=== PATIENT | male | born 1990 | race Caucasian/White ===

== ENCOUNTER 2018-02-05 07:23 | Outpatient (CLI) | payer OTHER ==
[2018-02-05] MEDS ORDERED: ISOVUE-370 76%-LOCM 1 ML ONE (09:55)
== END 2018-02-05 07:24 | disposition home or self-care (01) ==
LOC: BICCT 07:23
PROVIDERS: ATTEND Internal Medicine Gastroenterology
DX: K58.1 Irritable bowel syndrome with constipation (principal); R10.11 Right upper quadrant pain; K63.89 Other specified diseases of intestine
CPT/HCPCS: 74177

== ENCOUNTER 2022-11-03 13:29 | Outpatient (CLI) | payer OTHER | END 2022-11-03 13:30 | disposition home or self-care (01) | LOC: SCSMRI 13:29 | PROVIDERS: ATTEND Psychiatry & Neurology Neurology | DX: G40.209 Localization-related (focal) (partial) symptomatic epilepsy and epileptic syndromes with complex partial seizures, not intractable, without status epilepticus (principal); S06.2XAA Diffuse traumatic brain injury with loss of consciousness status unknown, initial encounter; Z98.890 Other specified postprocedural states | CPT/HCPCS: 70553; 82565 ==